=== PATIENT | male | born 1965 | race Caucasian/White ===

== ENCOUNTER 2017-12-23 14:13 | Emergency (ER) | payer MEDICARE, MEDICAID ==
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
[2017-12-23] MEDS ORDERED: 0.9 % SODIUM CHLORIDE 1000ML 1,000 ML IV PRN (14:59)
[2017-12-23] MEDS ORDERED: PROMETHAZINE HCL 25 MG/ML VIAL IV ONE (14:59)
[2017-12-23] MEDS ORDERED: HYDROMORPHONE HCL 2 MG/ML VIAL IVP ONE (15:02)
[2017-12-23 15:35] LABS: URINE APPEARANCE SL CLOUDY; URINE BILIRUBIN SMALL (NEGATIVE); URINE BLOOD MODERATE (NEGATIVE); URINE COLOR YELLOW; URINE GLUCOSE (UA) NEGATIVE (NEGATIVE); URINE KETONE 15 mg/dL (NEGATIVE); URINE LEUKOCYTE ESTERASE TRACE (NEGATIVE); URINE NITRITE NEGATIVE (NEGATIVE)
[2017-12-23 15:43] LABS: HEMATOCRIT 55.5 % (42.0-52.0); HEMOGLOBIN 17.9 gm/dl (14.0-18.0); MEAN CELL VOLUME 88.8 fl (81-97); MEAN CORPUSCULAR HEMOGLOBIN 28.6 pg (27-33); MEAN CORPUSCULAR HGB CONC 32.3 g/dl (32-36); MEAN PLATELET VOLUME 11.3 fl (7.4-10.4); PLATELET COUNT 328 K/uL (130-400); RED BLOOD COUNT 6.25 M/uL (4.40-5.70); RED CELL DISTRIBUTION WIDTH 14.9 % (11.5-14.5); WHITE BLOOD COUNT W/O DIFF 9.3 K/uL (4.2-12.2)
[2017-12-23 15:45] LABS: BLOOD UREA NITROGEN 42 mg/dL (6-20); CREATININE 0.6 mg/dL (0.7-1.2); EST GLOMERULAR FILTRATION RATE > 60 mL/min
[2017-12-23 15:46] LABS: TOTAL PROTEIN 8.4 g/dL (6.6-8.7)
[2017-12-23 15:48] LABS: GLUCOSE,RANDOM 148 mg/dL (74-109)
[2017-12-23 15:50] LABS: ALBUMIN 4.1 g/dL (4.0-5.0); ALKALINE PHOSPHATASE 72 U/L (40-129); ALT/SGPT 39 U/L (<41); AST/SGOT 23 U/L (10.0-50.0); BILIRUBIN,DIRECT 0.2 mg/dL (0-0.3)
[2017-12-23 15:51] LABS: LIPASE 35 U/L (13-60)
[2017-12-23 15:53] LABS: URINE BACTERIA 4+; URINE SQUAMOUS EPITHELIAL CELL 16 - 20 /hpf
[2017-12-23] MEDS ORDERED: CIPROFLOXACIN LACTATE/D5W 400 MG/200 ML BAG IVPB ONE (17:38)
--- NOTE | 2017-12-25 08:24 | CT SCAN REPORT ---
EXAM: CT SCAN OF THE ABDOMEN AND PELVIS HISTORY: PATIENT HAS NAUSEA AND VOMITING. TECHNIQUE: Serial axial CT scan of the abdomen and pelvis was performed at 2.5 mm intervals from the dome of the diaphragm down to the pubic symphysis without the use of intravenous or oral contrast. No comparison CT's are available. FINDINGS: The lung windows of the lung bases demonstrate linear subsegmental atelectasis and/or scarring at the left lung base. The visualized heart size and contour is within normal limits. There is questionable gynecomastia within the right breast. The liver demonstrates diffuse fatty infiltration. There is portal venous air identified extending to the periphery of the left hepatic lobe. The spleen, pancreas, and bilateral adrenal glands are unremarkable. Diffuse hepatic steatosis is noted. The bilateral kidneys demonstrate no CT evidence of hydronephrosis or hydroureter. A nonobstructive 2 mm calculus is noted within the inferior pole of the left kidney. A Bosniak Type 1 exophytic cyst is noted within the inferior pole of the right kidney. The contour and caliber of the noncontrasted abdominal aorta is within jaguar limits. There is no CT evidence of retroperitoneal, pelvic or inguinal lymphadenopathy. Several dilated loops of small bowel are identified with air fluid levels. These findings may be the result of an ileus pattern. There is questionable pneumatosis of occasional loops of small bowel within the left mid abdomen. The stomach is significantly distended. There are findings compatible with pneumatosis within the lining of the stomach wall. This finding likely accounts for the portal venous gas identified. There is no CT evidence of free intraperitoneal fluid or free intraperitoneal air. The urinary bladder is decompressed with a [place] catheter. Bone windows demonstrate postoperative changes of the bilateral hips. Penile pump reservoir is noted within the left hemipelvis. Advanced degenerative disk disease of the lumbar spine are noted. IMPRESSION: 1. PNEUMATOSIS OF THE STOMACH LINING IS NOTED. QUESTIONABLE PNEUMATOSIS OF OCCASIONAL LOOPS OF SMALL BOWEL ARE IDENTIFIED. AIR WITHIN THE PORTAL VENOUS SYSTEM IS NOTED TO EXTEND INTO THE LEFT HEPATIC LOBE DISCUSSED ABOVE. SURGICAL CONSULTATION IS SUGGESTED. THESE FINDINGS WERE COMMUNICATED TO DR. ULISES WYMAN ON 12/23/17 AT 5:27 P.M. 2. LINEAR SUBSEGMENTAL ATELECTASIS AND/OR SCARRING AT THE LEFT LUNG BASE IS NOTED. 3. DIFFUSE HEPATIC STEATOSIS. 4. LARGE EXOPHYTIC CYST WITHIN THE INFERIOR POLE OF THE RIGHT KIDNEY. JOB NUMBER: [id number] [facility]
== END 2017-12-23 18:51 | disposition short-term general hospital (02) ==
LOC: ER 14:13
DX: K56.0 Paralytic ileus (principal); N30.00 Acute cystitis without hematuria; R11.11 Vomiting without nausea; G82.50 Quadriplegia, unspecified
CPT/HCPCS: 99285 ×2; 96365; 96375; 96361; 83690; 80076; 80048; 81001; 82272; 85027; 74176; J0744; J1170; J2550